=== PATIENT | male | born 1995 | race Caucasian/White ===

== ENCOUNTER 2019-07-09 15:32 | Inpatient (IN) | payer SELFPAY ==
[~2019-07-09] VITALS: Ht 165.1 cm; Wt 72.6 kg
[2019-07-09] MEDS ORDERED: MORPHINE SULFATE 4 MG/ML CPJ (NOT FOR IM USE) IV STA (23:34)
[2019-07-09] MEDS ORDERED: ONDANSETRON HCL 4MG/2ML INJ IV STA (23:34)
[2019-07-09] MEDS ORDERED: SODIUM CHLORIDE 0.9% 1,000 ML IV ONE (23:34)
[2019-07-09] MEDS ORDERED: PIPERACILLIN/TAZ 3.375G PREMIX 50 ML IV ONE (23:45)
[2019-07-09 23:55] LABS: BASOPHILS % 0.8 % (0.0-2.0); EOSINOPHILS % 0.2 % (0.0-5.0); HEMATOCRIT. 46.3 % (42.0-52.0); HEMOGLOBIN. 16.3 g/dL (14.0-18.0); LYMPHOCYTES % 25.5 % (20.0-50.0); MEAN CORPUSCULAR HEMOGLOBIN 30.6 pg (28.0-32.0); MEAN CORPUSCULAR VOLUME 87.1 fL (80.0-94.0); MEAN PLATELET VOLUME 8.1 fl (7.4-10.4); MONOCYTES % 10.9 % (2.0-8.0); NEUTROPHILS % 62.6 % (40.0-76.0); PLATELET 185 x1000/uL (130-400); RED BLOOD CELL COUNT 5.32 mill/uL (4.7-6.1)
[2019-07-10 00:04] LABS: PROTHROMBIN TIME 10.5 sec (9.6-11.0)
[2019-07-10 00:07] LABS: CHLORIDE 104 mEq/L (98-107)
[2019-07-10 00:13] LABS: CLARITY URINE CLEAR (CLEAR); COLOR URINE YELLOW (YELLOW); KETONES URINE 2+ (NEGATIVE); LEUKOCYTE ESTERASE URINE NEGATIVE (NEGATIVE); NITRITE URINE NEGATIVE (NEGATIVE); OCCULT BLOOD URINE NEGATIVE (NEGATIVE); PH URINE 5.5 (4.5-8.0); PROTEIN URINE NEGATIVE (NEGATIVE); SPECIFIC GRAVITY URINE 1.018 (1.005-1.030); UROBILINOGEN URINE 0.2 E.U./dL (0.2-1.0)
[2019-07-10] MEDS ORDERED: HYDROCODONE/ACETAMINOPHEN 5/325MG TABLET PO PRN ×2 (02:15)
[2019-07-10] MEDS ORDERED: MORPHINE SULFATE 2 MG/ML CPJ (NOT FOR IM USE) IV PRN (02:15)
[2019-07-10] MEDS ORDERED: MORPHINE SULFATE 4 MG/ML CPJ (NOT FOR IM USE) IV PRN (02:15)
[2019-07-10] MEDS ORDERED: ONDANSETRON HCL 4MG/2ML INJ IV PRN ×2 (02:15→03:45)
[2019-07-10] MEDS ORDERED: SKIN ADHESIVE 0.7 GM EA TOP ONE (02:48)
[2019-07-10] MEDS ORDERED: BUPIVACAINE HCL 0.5% (5MG/ML) 50ML ONE (02:48)
[2019-07-10] MEDS ORDERED: MIDAZOLAM HCL 2 MG/2 ML VIAL ONE (03:18)
[2019-07-10] MEDS ORDERED: NEOSTIGMINE METHYLSULFATE 1MG/ML 10 ML VIAL ONE ×2 (03:18→04:04)
[2019-07-10] MEDS ORDERED: FENTANYL CITRATE/PF 50MCG/ML 2ML VIAL ONE (03:18)
[2019-07-10] MEDS ORDERED: PROPOFOL 200MG/20ML VIAL IV ONE (03:18)
[2019-07-10] MEDS ORDERED: ROCURONIUM BROMIDE 10MG/ML VIAL 5ML IV ONE (03:18)
[2019-07-10] MEDS ORDERED: GLYCOPYRROLATE 0.2 MG/ML 2ML VIAL ONE ×2 (03:18→04:04)
[2019-07-10] MEDS ORDERED: ONDANSETRON HCL 4MG/2ML INJ ONE (03:22)
[2019-07-10] MEDS ORDERED: DEXAMETHASONE 4MG/ML 1ML VIAL ONE (03:22)
[2019-07-10] MEDS ORDERED: MEPERIDINE HCL/PF 25MG/ML CPJ IV PRN (03:45)
[2019-07-10] MEDS ORDERED: LABETALOL 5MG/ML SYR 20 MG/4 ML SYRINGE IV PRN (03:45)
[2019-07-10] MEDS ORDERED: HYDROMORPHONE HCL/PF 2MG/ML CPJ IV PRN (03:45)
[2019-07-10 05:15] VITALS: BP 123/84
[2019-07-10] MEDS ORDERED: IOHEXOL-300 100 ML BOTTLE ONE (06:45)
[2019-07-10 08:00] VITALS: BP 106/61
[2019-07-10] MEDS ORDERED: MAGNESIUM/ALUMINUM HYDROXIDE/SIMETHICONE 30ML UDC PO PRN (08:00)
[2019-07-10] MEDS ORDERED: CLONIDINE 0.1MG TABLET PO PRN (08:00)
[2019-07-10 10:24] LABS: HEMATOCRIT 42.7 % (42.0-52.0); HEMOGLOBIN 14.8 g/dL (14.0-18.0); MEAN CORPUSCULAR VOLUME 86.6 fL (80.0-94.0); PLATELET 181 x1000/uL (130-400); RED BLOOD CELL COUNT 4.93 mill/uL (4.7-6.1); RED CELL DISTRIBUTION WIDTH 12.9 % (11.6-14.6)
[2019-07-10 10:47] LABS: CHLORIDE 107 mEq/L (98-107)
[2019-07-10 10:49] VITALS: BP 106/61
[2019-07-10] MEDS: DEXT 5%/0.45% NACL KCL 20MEQ/L 1,000 ML IV SCH ×3 (11:11→22:06)
[2019-07-10 12:00] VITALS: BP 105/53
[2019-07-10 16:00] VITALS: BP 105/61
[2019-07-10 20:00] VITALS: BP 103/63
[2019-07-11] VITALS: BP 99/56
[2019-07-11 04:00] VITALS: BP 94/52
[2019-07-11 06:13] LABS: BASOPHILS % 0.4 % (0.0-2.0); EOSINOPHILS % 0.3 % (0.0-5.0); HEMATOCRIT. 41.8 % (42.0-52.0); HEMOGLOBIN. 14.7 g/dL (14.0-18.0); LYMPHOCYTES % 28.5 % (20.0-50.0); MEAN CORPUSCULAR HEMOGLOBIN 30.3 pg (28.0-32.0); MEAN CORPUSCULAR VOLUME 86.4 fL (80.0-94.0); MEAN PLATELET VOLUME 8.6 fl (7.4-10.4); MONOCYTES % 9.1 % (2.0-8.0); NEUTROPHILS % 61.7 % (40.0-76.0); PLATELET 190 x1000/uL (130-400); RED BLOOD CELL COUNT 4.84 mill/uL (4.7-6.1); RED CELL DISTRIBUTION WIDTH 12.8 % (11.6-14.6)
[2019-07-11 07:17] LABS: CHLORIDE 106 mEq/L (98-107)
[2019-07-11 08:00] VITALS: BP 117/77
[2019-07-11 12:00] VITALS: BP 88/50
[2019-07-11] MEDS ORDERED: INFLUENZA VIRUS VACCINE(AFLURIA) 0.5ML SYR IM ONE (13:00)
[2019-07-11 13:31] VITALS: BP 88/50
== END 2019-07-11 14:41 | disposition home or self-care (01) | DRG 234 ==
LOC: ER 15:32 → EDBEDREQTM 07-10 01:38 → EDBEDREQ 07-10 01:38 → 6EST 07-10 03:25 → ENRESERV 07-10 03:26
PROVIDERS: ADMIT Internal Medicine; ATTEND Internal Medicine
PROC: 0DTJ4ZZ Resection of Appendix, Percutaneous Endoscopic Approach (ICD-10-PCS; principal; 2019-07-10)
DX: K35.80 Unspecified acute appendicitis (principal); K59.00 Constipation, unspecified
CPT/HCPCS: 36415; 71045; 74177; 80048; 80053; 81003; 83605; 85025; 85027; 88304; 90686; 96365; 99291; J1100; J2250; J2270; J2405; J2543; J2704; J2710; J3010; J3490; J7030; Q9967